=== PATIENT | female | born 1955 | race Hispanic/Latino ===

== ENCOUNTER 2022-10-09 14:41 | Emergency (ER) | payer OTHER ==
[~2022-10-09] VITALS: Ht 139.7 cm; Wt 50.3 kg
[2022-10-09 15:55] LABS: BASOPHILS # (AUTO) 0.04 K/uL (0.00-0.20); BASOPHILS % (AUTO) 0.9 % (0.0-5.0); EOSINOPHILS # (AUTO) 0.27 K/uL (0.00-0.70); EOSINOPHILS % (AUTO) 6.3 % (0.0-8.0); HEMATOCRIT 40.5 % (36-48); IMMATURE GRANULOCYTE ABSOLUTE 0.01 K/uL (0-1); LYMPHOCYTES # (AUTO) 1.2 K/uL (1.0-4.8); LYMPHOCYTES % (AUTO) 28.8 % (21.0-51.0); MEAN CORPUSCULAR HGB CONC 33.8 g/dL (32.0-36.0); MEAN CORPUSCULAR VOLUME 85.8 fL (79-99); MONOCYTES # (AUTO) 0.4 K/uL (0.1-1.0); MONOCYTES % (AUTO) 9.5 % (3.0-13.0); NEUTROPHILS # (AUTO) 2.3 K/uL (1.8-7.7); NEUTROPHILS % (AUTO) 54.3 % (40.0-77.0); PLATELET COUNT (AUTO) 155 K/uL (130-400); RED BLOOD CELL COUNT(AUTO) 4.72 MIL/uL (4.00-5.50); RED CELL DISTRIBUTION WIDTH 12.6 % (11.0-15.5); WHITE BLOOD COUNT (AUTO) 4.3 K/uL (4.8-10.8)
[2022-10-09 16:06] LABS: CARBON DIOXIDE 27 mmol/L (21-32); CHLORIDE 105 mmol/L (101-111); CREATININE 0.9 mg/dL (0.5-1.5); GLOMERULAR FILTR. RATE CALC 70 mL/min (>90); GLUCOSE,RANDOM 216 mg/dL (70-105); POTASSIUM 3.5 mmol/L (3.5-5.1); SODIUM SERUM 140 mmol/L (136-145); UREA NITROGEN, BLOOD 16 mg/dL (7-18)
[2022-10-09 16:10] LABS: ALANINE AMINOTRANSFERASE 16 U/L (12-78); ALBUMIN 3.4 g/dL (3.5-5.0); ALCOHOL, BLOOD < 3 mg/dL (0-10); ASPARTATE AMINOTRANSFERASE 14 U/L (10-37); BILIRUBIN,TOTAL 0.6 mg/dL (0.2-1.0); TOTAL PROTEIN, SERUM 7.4 g/dL (6.0-8.3)
[2022-10-09 16:17] LABS: APPEARANCE,URINE CLOUDY (CLEAR); BILIRUBIN,URINE NEGATIVE (NEGATIVE); COLOR,URINE YELLOW (YELLOW); GLUCOSE, URINE (UA) 500 mg/dL (NEGATIVE); KETONES,URINE 10 mg/dL (NEGATIVE); LEUKOCYTE ESTERASE ,URINE 500 Leu/uL (NEGATIVE); NITRATE,URINE NEGATIVE (NEGATIVE); OCCULT BLOOD,URINE NEGATIVE (NEGATIVE); PROTEIN,URINE 20 mg/dL (NEGATIVE); UROBILINOGEN,URINE 0.2 mg/dL (0.2-1.0)
[2022-10-09 16:19] LABS: ADD UA MICROSCOPIC YES
[2022-10-09 16:23] LABS: AMPHET/METH SCREEN,URINE NEGATIVE (NEGATIVE); BARBITURATE SCREEN, URINE NEGATIVE (NEGATIVE); BENZODIAZEPINES SCREEN,URINE NEGATIVE (NEGATIVE); CANNABINOID SCREEN,URINE NEGATIVE (NEGATIVE); COCAINE SCREEN,URINE NEGATIVE (NEGATIVE); OPIATE SCREEN,URINE NEGATIVE (NEGATIVE); PHENCYCLIDINE SCREEN,URINE NEGATIVE (NEGATIVE)
[2022-10-09 16:37] LABS: BACTERIA,URINE FEW /HPF (None Seen); MUCUS,URINE FEW LPF (None Seen); SQUAMOUS EPITHELIAL CELL,UR MOD /HPF (0-2)
[2022-10-09 17:16] VITALS: BP 145/89; PULSE 98; RESP 16; O2SAT 98
== END 2022-10-09 17:50 | disposition home or self-care (01) ==
LOC: MERGE 14:41 → EDH 14:41
DX: M25.551 Pain in right hip (principal); M25.561 Pain in right knee; M25.562 Pain in left knee; M54.9 Dorsalgia, unspecified; I10 Essential (primary) hypertension; E11.9 Type 2 diabetes mellitus without complications; E78.00 Pure hypercholesterolemia, unspecified; M19.90 Unspecified osteoarthritis, unspecified site; Z90.49 Acquired absence of other specified parts of digestive tract; Z98.890 Other specified postprocedural states; W18.39XA Other fall on same level, initial encounter; Y93.89 Activity, other specified; Y92.89 Other specified places as the place of occurrence of the external cause; Y99.8 Other external cause status
CPT/HCPCS: 36415; 72100; 73502; 73562; 73630; 80053; 80305; 81001; 84484; 85025; 87077; 87088; 87186; 93005

== ENCOUNTER 2023-07-06 23:02 | Emergency (ER) | payer OTHER ==
[~2023-07-06] VITALS: Ht 139.7 cm; Wt 51.7 kg
[2023-07-07] MEDS: KETOROLAC 30MG VIAL (30MG/ML) IM ONE (00:05)
[2023-07-07] MEDS ORDERED: BACL5TAB PO (00:58)
[2023-07-07] MEDS ORDERED: KETO10TA2 PO (00:58)
[2023-07-07 01:12] VITALS: BP 138/75; PULSE 72; RESP 16; O2SAT 99
== END 2023-07-07 01:13 | disposition home or self-care (01) ==
LOC: EDH 23:02
DX: S33.5XXA Sprain of ligaments of lumbar spine, initial encounter (principal); I10 Essential (primary) hypertension; X58.XXXA Exposure to other specified factors, initial encounter; Y93.89 Activity, other specified; Y92.89 Other specified places as the place of occurrence of the external cause; Y99.8 Other external cause status
CPT/HCPCS: 99284; 72100; 96372; J1885

== ENCOUNTER 2023-12-27 00:30 | Emergency (ER) | payer MEDICARE ==
[~2023-12-27] VITALS: Ht 139.7 cm; Wt 47.2 kg
[~2023-12-27 00:30] MED LIST: BACL5TAB PO; KETO10TA2 PO
[2023-12-27 01:22] VITALS: TEMP 98.1
[2023-12-27] MEDS: acetaMINOPHEN 325 MG TAB PO ONE (01:40)
--- NOTE | 2023-12-27 02:01 | HMCIMG ---
CT CERVICAL SPINE W/O CONTRAST HISTORY: Status post fall . COMPARISON: None TECHNIQUE: Multiple sequential axial images of the cervical spine were obtained including post processing sagittal and coronal reconstruction images. Patient was not given contrast through intravenous route. FINDINGS: There are degenerative changes with cervical spine spondylosis. Disc space narrowings are seen predominantly involving the lower cervical spine. There is sphenoid sinus opacification. There are degenerative changes with cervical spine spondylosis. Disc fusion is seen at C2-3 level. There is straightening of normal lordotic cervical curvature which may be related to muscle spasm or positioning. There is no loss of vertebral height. Evaluation for disc and cord pathology is limited with CT study. No evidence of fracture or dislocation is seen. IMPRESSION: 1. No fracture is seen. DJD with spondylosis. CT was performed with one or more following dose reduction techniques: automated exposure control, adjustment of the mA and kv according to patient's size, or use of a iterative reconstruction technique.
--- NOTE | 2023-12-27 02:02 | HMCIMG ---
CT MAXILLOFACIAL W/O CONTRAST HISTORY: Status post fall COMPARISON: None TECHNIQUE: Multiple sequential high-resolution axial images of the paranasal sinuses were obtained. Postprocessing sagittal and coronal reconstruction images were also obtained. Patient was not given contrast through intravenous route. FINDINGS: There is sphenoid sinus opacification. Nasal septum is grossly midline. Osteopenia is seen. The infundibula are patent bilaterally. No acute displaced fracture is seen. There is no evidence of air-fluid level in the paranasal sinuses. Parapharyngeal fat planes are preserved bilaterally. IMPRESSION: 1. No acute displaced fracture is seen. CT was performed with one or more following dose reduction techniques: automated exposure control, adjustment of the mA and kv according to patient's size, or use of a iterative reconstruction technique.
--- NOTE | 2023-12-27 02:04 | HMCIMG ---
CT CHEST W/O CONTRAST HISTORY: Status post fall COMPARISON: None TECHNIQUE: Multiple sequential axial images of the chest were obtained from the thoracic inlet through upper abdomen. Patient was not given contrast through intravenous route. FINDINGS: There is no evidence of pulmonary nodule or parenchymal disease. No pleural effusion or pericardial effusion is seen. There is no evidence of pneumothorax. There are normal size mediastinal and hilar lymph nodes. The heart is not enlarged. Degenerative changes of the thoracolumbar spine are present. There is no evidence of adrenal nodule. No acute displaced fracture is seen. IMPRESSION: 1. No evidence of pulmonary nodule or effusion is seen. CT was performed with one or more following dose reduction techniques: automated exposure control, adjustment of the mA and kv according to patient's size, or use of a iterative reconstruction technique.
--- NOTE | 2023-12-27 02:41 | ERN ---
General Chief Complaint: Mechanical Fall Stated Complaint: TRIP AND FALL Time Seen by MD: 00:37 History of Present Illness Initial Comments Ms. Calle is a very pleasant 68-year-old female who presents today with a chief complaint of falling. Patient reports that she tripped to roll her loosen linoleum floor. Patient reports hitting her face and landing on her knees. Allergies: Coded Allergies: No Known Drug Allergies (Unverified Allergy, Unknown, 10/10/22) Home Meds Active Scripts Baclofen (Baclofen) 5 Mg Tablet, 5 MG PO BID for 7 Days, #14 TAB Prov:DESI VEGA 07/07/23 Ketorolac Tromethamine (Ketorolac Tromethamine) 10 Mg Tablet, 10 MG PO BID for 7 Days, #14 TAB Prov:DESI VEGA 07/07/23 Past Medical History Past Medical History: A-Fib, Arthritis, COPD, Diabetes-Type II, High Chol esterol, Hypertension Medical History Other: NON COMPLIANT WITH HTN MEDICATIONS, OSTEOPOROSIS Past Surgical History: Other Surgical History Other: RT HIP PAIN ROS Dictation Constitutional: Negative for fever,chills, and weight loss Eyes: Negative for injury, pain,redness, and discharge ENT: Tooth pain Cardiovascular: Negative for chest pain, palpitations, and edema Respiratory: Negative for shortness of breath, cough, and wheezing, Abdomen/GI: Negative for abdominal pain, nausea, vomiting, diarrhea, and constipation Back: Negative for injury and pain : Negative for injury, bleeding and discharge MS/Extremity: Knee pain Skin: Negative for rash, and discoloration Neuro: Negative for headache, weakness, numbness, tingling, and seizure Psych: Negative for suicide ideation, homicidal ideation, and hallucinations Physical Exam Physical Exam Dictation General: awake, alert, NAD Head/Face: Loose bottom tooth Eyes: PERRL, EOMI, vision at baseline ENT: oral cavity clear Neck: Trachea midline, supple Cardiovascular: RRR, normal S1/S2, No MRGs, no JVD Respiratory: CTAB, no respiratory distress, No rales or wheezes Abdomen: Soft, non-tender, non-distended, Skin: Warm, dry, normal turgor, no rash MS/Extremity: Pain with palpation of the bilateral knees Neuro: COAx4, GCS 15, strength 5/5, CN 2-12 intact MDM Review of patient's imaging shows no acute fracture. MDM: Differential diagnosis: Mechanical fall Previous outside records reviewed: Old ER visits. Need for hospitalization: Patient does not meet criteria for hospitalization. Need for emergency major/minor surgery: No Patient's prior external medical records from other ER visits were reviewed by me as indicated. Prior testing and results from previous visits were reviewed. Prior tests were taken into account with medical decision making and resource utilization, independent historian/historians were used to obtain complete medical history. I independently interpreted the test that were performed, results were reviewed by me and considered findings on radiology if ordered. Medical management and examination interpretation discussions were had by me with other qualified healthcare professionals as indicated for the patient's care. ED Course Orders Procedure Category Date Status Time Ct Chest W/O Contrast CT 12/27/23 Resulted 00:57 Ct Cervical Spine W/O CT 12/27/23 Resulted Contrast 00:57 Ct Maxillofacial W/O CT 12/27/23 Resulted Contrast 00:57 Knee 3vws Lt RAD 12/27/23 Taken 00:57 Knee 3vws Rt RAD 12/27/23 Taken 00:57 Acetaminophen 325 Tab PHA 12/27/23 Complete (Tylenol 325mg Tab 01:30 Current Medications Medications (Trade) Dose Ordered Sig/Song Route PRN Reason Start Time Stop Time Status Last Admin Dose Admin Acetaminophen (TYLenol 325MG TAB) 650 mg ONCE ONCE PO 12/27/23 01:30 12/27/23 01:31 DC 12/27/23 01:40 Vital Signs Date Time Temp Pulse Resp B/P (MAP) Pulse Ox O2 Delivery O2 Flow Rate FiO2 12/27/23 01:22 98.1 92 18 185/86 98 Room Air* 0 21 12/27/23 00:31 98.2 92 16 186/90 98 Room Air 0 DX & DISP Disposition: Discharge Departure Impression: Primary Impression: Fall Condition: Stable Additional Instructions: Please follow-up with the primary care physician in the next 1-7 days for c ontinued care. Please take Tylenol and ibuprofen in alternating fashion for pain Referrals: MICHAEL VEGA MD (PCP) SHIKHA LEGER MD Dec 27, 2023 02:41
[2023-12-27 03:17] VITALS: BP 158/72; PULSE 85; RESP 18; O2SAT 98
--- NOTE | 2023-12-27 09:00 | HMCIMG ---
KNEE 3VWS RT REASON: fall TECHNIQUE: 3 views were obtained. FINDINGS: There is no evidence of fracture or dislocation. There is no joint effusion. The soft tissues appear unremarkable. There is no evidence of a radiopaque foreign body. IMPRESSION: No acute findings.
--- NOTE | 2023-12-27 09:00 | HMCIMG ---
KNEE 3VWS LT REASON: fall TECHNIQUE: 3 views were obtained. FINDINGS: There is no evidence of fracture or dislocation. There is no joint effusion. The soft tissues appear unremarkable. There is no evidence of a radiopaque foreign body. IMPRESSION: No acute findings.
== END 2023-12-27 03:18 | disposition home or self-care (01) ==
LOC: EDH 00:30
DX: M25.562 Pain in left knee (principal); M25.561 Pain in right knee; K08.89 Other specified disorders of teeth and supporting structures; E11.9 Type 2 diabetes mellitus without complications; E78.00 Pure hypercholesterolemia, unspecified; I10 Essential (primary) hypertension; I48.91 Unspecified atrial fibrillation; J44.9 Chronic obstructive pulmonary disease, unspecified; M81.0 Age-related osteoporosis without current pathological fracture; Z98.890 Other specified postprocedural states; W01.0XXA Fall on same level from slipping, tripping and stumbling without subsequent striking against object, initial encounter; Y93.89 Activity, other specified; Y92.89 Other specified places as the place of occurrence of the external cause; Y99.8 Other external cause status
CPT/HCPCS: 70486; 71250; 72125; 73562